=== PATIENT | female | born 1960 | race Caucasian/White ===

== ENCOUNTER → 2019-10-06 08:31 | Outpatient (CLI) | payer BC | END | disposition home or self-care (01) | LOC: D.HCCARDIO 08:31 | PROVIDERS: ATTEND Internal Medicine Cardiovascular Disease | DX: I35.8 Other nonrheumatic aortic valve disorders (principal) ==

== ENCOUNTER 2019-11-03 06:02 | Outpatient (CLI) | payer BC ==
[~2019-11-03] VITALS: Ht 157.5 cm; Wt 56.4 kg
--- NOTE | ~2019-11-03 | EC ---
PATIENT:CARISSA ZAFAR DATE OF SERVICE: 11/03/19 SEX: F MEDICAL RECORD: [id number] DATE OF : 58 LOCATION:D.CAT AGE OF PATIENT: 59 ADMISSION DATE: 11/03/19 REFERRING PHYSICIAN: INTERPRETING PHYSICIAN: KADEN CARDENAS MD ECHOCARDIOGRAM REPORT ECHO CHARGES 4 ECHO COMPLETE Date: 11/03/19 CLINICAL DIAGNOSIS: AORTIC STENOSIS ECHOCARDIOGRAPHIC MEASUREMENTS (adult normal given) AC root (d.<3.7cm) 2.6 cm LV Septum d (<1.2 cm> 1.5 cm Valve Excursion 1.2 cm LV Septum (systole) 1.6 cm Left Atria (s.<4.0cm> 3.4 cm LVPW d(<1.2cm) 1.7 cm RV (d.<2.3cm) 3.8 cm LVPW (sytole) 2.1 cm LV diastole(<5.6CM) 3.2 cm MV E-F(>70mm/sec) cm LV systole 1.5 cm LVOT Diameter 1.7 cm MV exc.(>10mm) 1.2 cm Est.ejection fraction (50-75%) % DOPPLER: LVIT cm/sec A 104.0cm/sec E 120.0 cm/sec LA cm/sec RVSP 33 mmHg LVOT 105 cm/sec AOP1/2T m/s Asc. Ao 214 cm/sec RVOT 79 cm/sec RA cm/sec PA 128 cm/sec AV Gradient Peak 18.28mmHg AV Mean 10.27mmHg AV Area 1.3 cm MV Gradient Peak 7.64 mmHg MV Mean 2.93 mmHg MV Area cm COMMENTS: Refrigerator Repair Technician: Basia GAY Ad Trafficker: 2 Dr. Johnston TAPE# PACS Pericardial Effusion N DATE OF SERVICE: ECHOCARDIOGRAM FINDINGS: 1. Left ventricular chamber size is within normal limits. Left ventricular systolic function is normal at 65%. 2. Left atrium, right atrium and right ventricular chamber sizes are within normal limits. 3. Valvular structures: Aortic valve demonstrates mild calcific aortic ECHOCARDIOGRAM REPORT [id number] CARISSA ZAFAR stenosis, valve area calculates 1.3 cm square and has a gradient of 18 mm across the valve. The remaining valvular structures have normal structure and motion. 4. Doppler interrogation elsewise reveals no significant valvular insufficiency or stenosis. Pulmonary systolic pressure is normal estimated at 33 mmHg. 5. No evidence of pericardial effusion or left ventricular thrombus. TRANSINT:[id number] Voice Confirmation ID: [id number] DOCUMENT ID: [id number] KADEN CARDENAS MD CC: [id number] DICTATION DATE: 11/03/19 1155 LIQUOR BLENDER: 11/03/19 1558 DEP CLI 11/03/19 [facility] [address] [place] [id number]
--- NOTE | ~2019-11-03 | HEMODYNAMI ---
PATIENT:CARISSA ZAFAR MEDICAL RECORD: [id number] : 58 LOCATION:DBelloCAT ADMISSION DATE: 11/03/19 Generatedon:11/03/20198:29 Patient name: CARISSA ZAFAR Patient #: [id number] SSN: [id number] : 1960 Date of study: 11/03/2019 Page: Of Hemodynamic Procedure Report Patient Data Patient Demographics Procedure consent was obtained First Name: CARISSA Gender: Female Last Name: CHARISMA : 1960 Patient #: [id number] Age: 59 year(s) Race: SSN: [id number] Additional ID: [id number] Contact details [address]: [address] [place] [address] State: [place] City: [place] Zip code: [address] Past Medical History History of disease Date Diagnosis Comments Valvular heart disease Allergies: No known allergies Admission Admission Data Admission Date: 11/03/2019 Admission Time: 6:02 Arrival Date: 08/03/2020 Arrival Time: 0:00 Admit Source: Other Insurance Payor: Private health insurance [facility] #: [id number] Height (in.): 61.5 BSA: 1.57 (m2) Height (cm.): 156.21 BMI: 23.79 (kg/m2) Weight (lbs.): 128 Weight (kg.): 58.06 Lab Results Lab Result Date: 11/03/2019 Lab Result Time: 0:00 Biochemistry Name Units Result Min Max BUN mg/dl 19 --(----)*- 7 18 Creatinine mg/dl 0.7 --(*---)-- 0.6 1.3 eGFR ml/min 90 --(*---)-- 90 120 NONAFRICAN CBC Name Units Result Min Max Hematocrit % 41.2 -*(----)-- 42 54 Hemoglobin g/dl 13.4 -*(----)-- 13.5 17.5 Procedure Procedure Types Cath Procedure Diagnostic Procedure [facility] w/Coronaries Aortic Root Angiography Sedation Charges Moderate Sedation up to 15 minutes Procedure Description Procedure Date Procedure Date: 11/03/2019 Procedure Start Time: 8:04 Procedure End Time: 8:26 Procedure Staff Name Function Giorgio Johnston MD Performing Physician Abbey Julio RT Monitor Suellen Richardson RN Nurse Lexi Irvin RT Scrub Mary Banks RT Monitor Procedure Data Cath Procedure Fluoroscopy Diagnostic fluoroscopy Total fluoroscopy Time: 3.8 time: 3.8 min min Contrast Material Contrast Material Type Amount (ml) Isovue 370 90 Entry Location Entry Primary Successful Side Size Upsize Upsize Entry Closure Succes sful Closure Location (Fr) 1 (Fr) 2 (Fr) Remarks Device Remarks Femoral Right 5 Fr Exoseal artery Estimated blood loss: 5 ml Diagnostic catheters Device Type Used For End Catheter Placement MULTIPACK JL 4.0 5Fr Procedure catheter MULTIPACK 3DRC 5Fr Procedure catheter MULTIPACK Pigtail 5 Fr Procedure catheter Procedure Complications No complications Procedure Medications Medication Administration Route Dosage Oxygen etCO2 Nasal cannula 2 l/min Heparin Flush Bag added to field 2 bags (1000units/500ml NS) 0.9% NaCl I.V. 100 ml/hr Versed I.V. 2 mg Fentanyl I.V. 50 mcg Versed I.V. 2 mg Fentanyl I.V. 50 mcg Versed I.V. 1 mg Fentanyl I.V. 50 mcg Hemodynamics Rest BSA: 1.57 (m2) HGB: 13.4 (g/dl) O2 Consumption: Estimated: 141.91 (ml/min) O2 Co nsumption indexed: Estimated:90.39 (ml/min/m) Heart Rate: 58 (bpm) Pressure Samples Time Site Value (mmHg) Purpose Heart Use Rate(bpm) 8:14 LV 118/23,29 Snapshot 62 8:15 AO 107/42(64) Pullback 63 8:15 LV 122/16,23 Pullback 63 Gradients Valve Time Site 1 Site 2 Mean SEP/DFP Peak To Heart Use (mmHg) (sec/min) Peak Rate (mmHg) (bpm) Aortic 8:15 LV AO 11 22 15 63 122/16,23 107/42(64) Calculations Valve P-P Mean Valve Index Valve Source Name Gradient Area Flow (cm2) Aortic 15 11 15 11 Snapshots Pre Cath Intra NCS Post Cath Vital Signs Time Heart Resp SPO2 etCO2 NIBP (mmHg) Rhythm Pain Sedation Rate (ipm) (%) (mmHg) Status Level (bpm) 7:55:42 61 21 97 36.9 152/69(122) NSR 0 (11) 10(A) , No pain 8:00:05 58 18 98 42.9 126/55(97) NSR 0 (11) 10(A) , No pain 8:04:23 58 10 99 24.8 118/49(85) NSR 0 (11) 10(A) , No pain 8:08:36 61 17 98 44.4 124/59(90) NSR 0 (11) 9(A) , No pain 8:12:50 60 10 99 48.2 96/49(73) NSR 0 (11) 9(A) , No pain 8:17:02 61 18 99 47.4 97/37(66) NSR 0 (11) 9(A) , No pain 8:21:14 61 14 99 44.2 95/40(61) NSR 0 (11) 10(A) , No pain 8:25:26 59 8 99 46.7 96/48(71) NSR 0 (11) 10(A) , No pain Medications Time Medication Route Dose Verified Delivered Reason Notes Effec tiveness by by 7:58:39 Oxygen etCO2 2 Giorgio Buffie used for Nasal l/min Preston Richardson RN procedure cannula 7:58:55 Heparin Flush added 2 Giorgio Giorgio used for Bag to bags Preston Johnston MD procedure (1000units/500ml field NS) 7:59:03 0.9% NaCl I.V. 100 Giorgio Buffie Per ml/hr Preston Richardson RN physician 8:01:04 Versed I.V. 2 mg Giorgio Buffie for Preston Richardson RN sedation 8:01:10 Fentanyl I.V. 50 Giorgio Buffie for mcg Preston Richardson RN sedation 8:05:03 Versed I.V. 2 mg Giorgio Buffie for Preston Richardson RN sedation 8:05:07 Fentanyl I.V. 50 Giorgio Buffie for mcg Preston Richardson RN sedation 8:12:15 Versed I.V. 1 mg Giorgio Buffie for Preston Richardson RN sedation 8:12:24 Fentanyl I.V. 50 Giorgio Buffie for [facility] Preston Richardson RN sedation Procedure Log Time Note 7:30:48 Informed consent obtained and on chart 7:33:19 Procedure Status Elective Heart Cath (OP). 7:33:21 Time tracking: Regular hours (M-F 7:00 - 5:00) 7:33:25 Plan of Care:Hemodynamics will remain stable., Cardiac rhythm will remain stable., Comfort level will be maintained., Respiratory function will remain adequate., Patient/ family verbilizes understanding of procedure., Procedure tolerated without complication., Recovers from procedure without complications.. 7:34:52 Patient Weight : 128 lbs 7:35:09 Patient Height : 61.5 inches 7:35:13 Arrival Date: 08/03/2020 12:00:00 AM 7:40:00 Lab Result : eGFR NONAFRICAN 90 ml/min 7:40:00 Lab Result : Hemoglobin 13.4 g/dl 7:40:00 Lab Result : BUN 19 mg/dl 7:40:00 Lab Result : Creatinine 0.7 mg/dl 7:40:00 Lab Result : Hematocrit 41.2 % 7:40:05 Suellen Richardson RN sent for patient. Start room use. 7:40:20 H&P Date Dictated: 10/02/2019 Within 30 days and on chart., H&P Addendum completed by physician on day of procedure. (MUST COMPLETE FOR ALL OUTPATIENTS). 7:40:28 Patient allergic to No known allergies 7:42:37 Stress Test: yes; abnormal ANTERIOR 7:42:40 Risk of Mortality: .2 7:42:42 Risk of blood transfusion: .3 7:42:44 Risk of OMAIRA: .3 7:45:20 ACC Patient presents with Stable Angina CCS Anginal Class 3--Marked limitation of physical activity, angina occurs with ordinary activity.. 7:45:54 Patient received from Pre/Post Procedure Room to CCL 1 Alert and oriented. Tansferred to table in Supine position. 7:45:55 Warm blankets applied, and julisa hugger turned on for patient comfort. 7:45:55 Correct patient and procedure confirmed by team. 7:45:56 ECG and BP/O2 sat monitors applied to patient. 7:52:09 Pre-procedure instructions explained to patient. 7:52:10 Pre-op teaching completed and patient verbalized understanding. 7:52:20 Family in waiting room. 7:52:22 Patient NPO since Midnight. 7:52:25 Is the patient allergic to Iodine/contrast media? No. 7:52:27 Was the patient premedicated? Yes 7:52:30 Is patient on blood thinner?No 7:52:32 Patient diabetic? No. 7:52:35 If diabetic: On Metformin? N/A 7:52:43 Patient not . Patient is over age 55. 7:52:44 ----Pre-sedation anethsthesia assessment.---- 7:52:49 Previous problem with sedation/anesthesia? No ? 7:52:50 Snore? Yes 7:52:52 Sleep apnea? No 7:52:53 Deviated septum? No 7:52:54 Opens mouth fully? Yes 7:52:56 Sticks out tongue? Yes 7:52:58 Airway obstruction? No ? 7:53:01 Dentures? No ? 7:53:23 Patient pain scale 0/10 ?. 7:53:32 IV patent on arrival in left antecubital with 0.9% NaCl at [facility]. 7:53:36 Right groin area was prepped with chlora-prep and draped in sterile fashion 7:53:37 Alarms reviewed by R. N. 7:53:38 Sharps counted by scrub and verified by R.N. 7:54:25 Pre procedure: right dorsailis pedis pulse 1+ Palpable, but thready & weak; easily obliterated 7:54:30 Vital chart was started 7:54:31 Full Disclosure recording started 7:54:40 Use device set Femoral Dx 7:54:41 ACIST Syringe (52588) opened to sterile field. 7:54:42 Bag Decanter (2002S) opened to sterile field. 7:54:43 Medline Cath Pack ([id number]) opened to sterile field. 7:54:45 ACIST Hand Control (67922) opened to sterile field. 7:54:46 ACIST Manifold (73285) opened to sterile field. 7:54:47 DIAGNOSTIC Multipack 5Fr catheter set ([id number]) opened to sterile field. 7:54:50 SHEATH 5FR [place] (OTF218) opened to sterile field. 7:54:51 EMERALD Guide Wire (731-329) opened to sterile field. 7:54:56 Baseline sample Acquired. 7:55:02 Rhythm: sinus rhythm 7:55:47 Insurance Payor : Private health insurance 7:56:00 Admit Source: Other 7:58:39 Oxygen 2 l/min etCO2 Nasal cannula was administered by Suellen Richardson RN; used for procedure; Verbal order read back and verified. 7:58:55 Heparin Flush Bag (1000units/500ml NS) 2 bags added to field was administered by Giorgio Johnston MD; used for procedure; Verbal order read back and verified. 7:59:03 0.9% NaCl 100 ml/hr I.V. was administered by Suellen Richardson RN; Per physician; Verbal order read back and verified. 7:59:53 --------ALL STOP TIME OUT------ 7:59:53 Final Timeout: patient, procedure, and site verified with staff and physician. All members of the team are in agreement. 7:59:56 Right groin site verified by team. 8:00:00 Fire Safety Assessment: A--An alcohol-based skin anteseptic being used preoperatively., C--Open oxygen or nitrous oxide is being used., D--An ESU, laser, or fiber-optic light is being used. 8:00:08 Physical assessment completed. ASA score P 2 - A patient with mild systemic disease as per Giorgio Johnston MD. 8:00:16 1) 90+ Normal kidney functon but urine findings or structural abnormalities or genetic trait point to kidney disease. 8:00:21 Maximum allowable contrast dose (3.7 X eGFR X 0.75)250 ml. 8:00:25 Sedation plan: IV Moderate Sedation Medication:Versed, Fentanyl 8:01:04 Versed 2 mg I.V. was administered by Suellen Richardson RN; for sedation; Verbal order read back and verified. 8:01:10 Fentanyl 50 mcg I.V. was administered by Suellen Richardson RN; for sedation; Verbal order read back and verified. 8:03:27 Zero performed for pressure channel P1 8:03:54 Procedure started. 8:04:33 Local anesthetic to right femoral artery with Lidocaine 2% by Goirgio Johnston MD.INITIAL ACCESS ONLY 8:05:03 Versed 2 mg I.V. was administered by Suellen Richardson RN; for sedation; Verbal order read back and verified. 8:05:07 Fentanyl 50 mcg I.V. was administered by Suellen Richardson RN; for sedation; Verbal order read back and verified. 8:06:19 A 5 Fr sheath was inserted into the Right Femoral artery 8:06:31 A MULTIPACK JL 4.0 5Fr catheter was advanced over the wire and used for Procedure. 8:07:54 LCA angiography performed. 8:09:04 Catheter exchanged over wire. 8::29 A MULTIPACK 3DRC 5Fr catheter was advanced over the wire and used for Procedure. 8:10:50 RCA angiography performed. 8:11:49 ACCDominant side:Co-Dominant 8:11:57 Catheter exchanged over wire. 8:12:15 Versed 1 mg I.V. was administered by Suellen Richardson RN; for sedation; Verbal order read back and verified. 8:12:24 Fentanyl 50 mcg I.V. was administered by Sulelen Richardson RN; for sedation; Verbal order read back and verified. 8:12:50 A MULTIPACK Pigtail 5 Fr catheter was advanced over the wire and used for Procedure. 8:14:21 Injector settings: Ml/sec: 5, Volume: 15, 8:14:31 LV gram done using MOCK 8:14:32 LV hemodynamics recorded. 8:14:48 EF : 60 % 8:16:06 Aortic Root visualized 8:22:20 Catheter removed. 8:22:24 EXOSEAL 5Fr (EX500) opened to sterile field. 8:22:35 Sheath removed intact; hemostasis achieved with Exoseal to the Right Femoral artery. 8:23:27 Procedure ended.(Physican Out) 8:23:31 Fluoroscopy time 03.80 minutes. 8:23:42 Dose Area Product 34450 mGy/cm. 8:23:46 Contrast amount:Isovue 370 90ml. 8:23:49 Maximum allowable dose exceeded? No. 8:23:50 Sharps counted by scrub and verified by R.N. 8:23:54 Post-op/insertion site Right Femoral artery dressed using a 4 x 4 and Tegaderm. 8:24:00 Post right femoral artery:stable, soft, clean and dry 8:24:02 Post Procedure Pulses reassessed and unchanged 8:24:06 Post procedure: right dorsailis pedis pulse 1+ Palpable, but thready & weak; easily obliterated. 8:24:09 Post-procedure physical assessment completed. ASA score P 2 - A patient with mild systemic disease as per Giorgio Johnston MD. 8:24:13 Post procedure rhythm: unchanged. 8:24:16 Estimated blood loss: 5 ml 8:24:19 Patient needs reinforcement of post procedure teaching. 8:24:20 Post procedure instruction explained to patient.Patient verbalizes understanding. 8:25:40 Procedure type changed to Cath procedure, Diagnostic procedure, LHC, C w/Coronaries, Aortic Root Angiography, Sedation Charges, Moderate Sedation up to 15 minutes 8:26:20 Procedure and supply charges have been captured, reviewed, submitted and are correct. 8:26:25 Procedure Complication : No complications 8:26:32 [facility] Findings: MVD- MD will discuss options w/ pt 8:26:35 Operative report dictated upon procedure completion. 8:26:35 See physician's report for complete and final results. 8:26:37 Report given to Pre/Post Procedure Room. 8:26:42 Patient transfered to Pre/Post Procedure Room with Stretcher. 8:26:50 Vital chart was stopped 8:26:53 Procedure ended. 8:26:53 Full Disclosure recording stopped 8:28:36 End room use (Document Last) 8:28:49 End room use (Document Last) 8:29:08 End room use (Document Last) Device Usage Item Name Manufacture Quantity Catalog Hospital Part Current Minimal L ot# / Number Charge Number Stock Stock Serial# Code ACIST Acist 1 03124 786751 [id number] [id number] 20 Syringe Medical (35089) Systems Inc Bag Microtek 1 752582 07395 800294 5 Decanter Medical Inc. () Medline Medline 1 [id number] 963075 03988 216772 5 Cath Pack ([id number]) ACIST Hand Acist 1 84949 278865 021602 428448 5 Control Medical (85233) Systems Inc ACIST Acist 1 47582 201352 000512 361227 5 Manifold Medical (12002) Systems Inc DIAGNOSTIC Cardinal 1 QR2243 188761 78310 915812 30 [email or web address] Oneexchangestreet 5Fr catheter set (RA1395) SHEATH 5FR Terumo 1 QGB338 773793 799588 129598 5 [place] (UVP485) [facility] Cardinal 1 649-175 090527 260849 096054 5 Guide Wire Health (146-537) MULTIPACK Cardinal 1 615351 5 JL 4.0 5Fr Health catheter MULTIPACK Cardinal 1 459232 5 3DRC 5Fr Health catheter MULTIPACK Cardinal 1 [id number] 5 Pigtail 5 Health Fr catheter EXOSEAL 5Fr Cardinal 1 EX500 188577 988581 634558 10 (EX500) Health Signature Audit [place] Stage Time Signature Unsigned Intra-Procedure 11/03/2019 Mary Banks 8:28:49 AM RT(R) Intra-Procedure 11/03/2019 Suellen Richardson RN 8:29:08 AM Intra-Procedure 11/03/2019 Giorgio Johnston MD 8:29:27 AM [facility] [address] [place] [address]
[2019-11-03 06:41] VITALS: BP 141/76; Ht 157.5 cm; Wt 56.4 kg
[2019-11-03] MEDS ORDERED: CYANOCOBAL1000 MCG/4 SC (07:01)
[2019-11-03] MEDS ORDERED: NORVASC5 MG PO (07:01)
[2019-11-03] MEDS ORDERED: VALTREX500 MG PO (07:02)
[2019-11-03] MEDS ORDERED: MOBIC7.5 MG PO (07:02)
[2019-11-03] MEDS ORDERED: LISINOPRIL-HCT1 EAC8 PO (07:02)
[2019-11-03] MEDS ORDERED: LEVOTHYROXINE150 MCG PO (07:03)
[2019-11-03 07:13] LABS: BASOPHILS 0.3 % (0-2); EOSINOPHILS 4.3 % (0-7); HEMATOCRIT 41.2 % (36.0-48.0); HEMOGLOBIN 13.4 g/dL (12-16); IMMATURE GRANULOCYTES 0.3 % (0-5); LYMPHOCYTES 13.7 % (15-50); MCH 31.5 pg (26.0-34.0); MCHC 32.5 g/dL (31.0-37.0); MCV 96.9 fL (80.0-100.0); MEAN PLATELET VOLUME 13.6 fL (7.4-10.4); MONOCYTES 10.4 % (2-11); PLATELET COUNT 145 10x3/uL (130-400); RBC 4.25 10x6/uL (4.00-5.40); RDW 12.6 % (11.5-14.5); WBC 6.6 10x3/uL (4.8-10.8)
[2019-11-03 07:34] LABS: ALT (SGPT) 29 U/L (10-68); CALC OSMOLALITY 280 mosm/kg (275-300); CALCIUM 8.9 mg/dL (8.5-10.1); CARBON DIOXIDE 28.6 mmol/L (21.0-32.0); CHLORIDE - SERUM 104 mmol/L (98-107); CHOL - HDL RATIO 5.7 ratio (2.3-4.1); CHOLESTEROL, TOTAL 301 mg/dL (0-200); CREATININE - SERUM 0.7 mg/dL (0.6-1.3); GLUCOSE 96 mg/dL (74-106); HDL CHOLESTEROL 53 mg/dL (32-96); LDL CHOLESTEROL 220 mg/dL (0-100); LDL-HDL RATIO 4.2 ratio (1.5-3.5); POTASSIUM - SERUM 3.8 mmol/L (3.5-5.1); SODIUM 140 mmol/L (136-145); TRIGLYCERIDE 141 mg/dL (30-200); UREA NITROGEN 19 mg/dL (7-18); eGFR NON AFRICAN AMERICAN 90 mL/min (90-120)
--- NOTE | 2019-11-03 08:42 | NUR ---
PT RECEIVED VIA STRETCHER FROM TELEPHONE CLEANER FOR RECOVERY. PT AWAKE BUT DROWSY, SHE DENIES PAIN OR DISCOMFORT. IV PATENT INFUSING VIA L ARM PER ORDERS. PT PLACED ON CARDIAC MONITORS AND O2 VIA NC AT 2L. HR NSR RATE 60, BP 144/55, SAT 98. R GROIN W 5FR EXOCELE, DRESSING CDI NO BLEEDING OR S/S HEMATOMA NOTED. LEG PINK AND WARM, PEDAL PULSES PALPABLE. PT INSTRUCTED TO KEEP HEAD ON PILLOW AND LEG STRAIGHT, SHE VERBALIZED UNDERSTANDING. CALL LIGHT IN REACH.
--- NOTE | 2019-11-03 09:00 | NUR ---
PT RESTING COMFORTABLY, DENIES NEEDS OR DISCOMFORT. VSS. R GROIN SOFT, DRESSING REMAINS CDI NO BLEEDING OR S/S HEMATOMA NOTED. PEDAL PULSES PALPABLE. SIPS OF SPRITE GIVEN. CALL LIGHT IN REACH.
--- NOTE | 2019-11-03 09:15 | NUR ---
RN OCCUPATIONAL AT BS PERFORMING ORDERED ECHO.
--- NOTE | 2019-11-03 09:45 | NUR ---
PORTABLE CHEST XR COMPLETED. R GROIN SOFT, NO S/S HEMATOMA. HOB ELEVATED, SANDWICH TRAY AND DRINK SERVED. CALL LIGHT IN REACH, PT DENIES OTHER NEEDS
--- NOTE | 2019-11-03 10:20 | NUR ---
DISCHARGE INSTRUCTIONS REVIEWED W PT, SHE VERBALIZED UNDERSTANDING. IV REMOVED W CATH INTACT. MONITORS REMOVED. R GROIN SOFT, NO S/S HEMATOMA NOTED. PT UP TO DRESS FOR DISCHARGE.
--- NOTE | 2019-11-03 10:26 | NUR ---
PT AMBULATED TO BR, VOIDING W/O DIFFICULITY
--- NOTE | 2019-11-03 10:46 | NUR ---
PT DISCHARGED VIA WC TO PRIVATE WAITING IN PRIVATE VEHICLE. PT HAD ALL BELONGINGS AND DISCHARGE PAPERWORK
== END 2019-11-03 10:45 | disposition home or self-care (01) ==
LOC: D.CATH 06:02
PROVIDERS: ATTEND Internal Medicine Cardiovascular Disease
DX: I20.9 Angina pectoris, unspecified (principal); R94.39 Abnormal result of other cardiovascular function study; R01.1 Cardiac murmur, unspecified; I35.8 Other nonrheumatic aortic valve disorders; E78.5 Hyperlipidemia, unspecified

== ENCOUNTER 2019-11-14 10:41 | Outpatient (CLI) | payer BC ==
[~2019-11-14] VITALS: Ht 157.5 cm; Wt 57.3 kg
--- NOTE | ~2019-11-14 | HEMODYNAMI ---
PATIENT:CARISSA ZAFAR MEDICAL RECORD: [id number] : 58 LOCATION:[facility] ADMISSION DATE: 11/14/19 Generatedon:11/14/201913:24 Patient name: CARISSA ZAFAR Patient #: [id number] SSN: [id number] : 1960 Date of study: 11/14/2019 Page: Of Hemodynamic Procedure Report Patient Data Patient Demographics Procedure consent was obtained First Name: CARISSA Gender: Female Last Name: CHARISMA : 1960 Patient #: [id number] Age: 59 year(s) Race: SSN: [id number] Additional ID: [id number] Contact details Address: [address] [place] [address] State: [place] City: [place] Zip code: [address] Past Medical History History of disease Date Diagnosis Comments Valvular heart disease Allergies: No known allergies Admission Admission Data Admission Date: 11/14/2019 Admission Time: 10:41 Arrival Date: 11/14/2019 Arrival Time: 0:00 Height (in.): 61.81 BSA: 1.57 (m2) Height (cm.): 157 BMI: 23.12 (kg/m2) Weight (lbs.): 125.66 Weight (kg.): 57 Current Diagnosis Diagnosis Description Stable angina Lab Results Lab Result Date: 11/14/2019 Lab Result Time: 0:00 Biochemistry Name Units Result Min Max BUN mg/dl 19 --(----)*- 7 18 Creatinine mg/dl 0.8 --(-*--)-- 0.6 1.3 eGFR ml/min 76.29257 *-(----)-- 90 120 NONAFRICAN CBC Name Units Result Min Max Hematocrit % 43.8 --(*---)-- 42 54 Hemoglobin g/dl 14.3 --(*---)-- 13.5 17.5 Procedure Procedure Types Cath Procedure Diagnostic Procedure Sedation Charges Moderate Sedation up to 15 minutes PCI Procedure Coronary Stent Coronary Stent Initial Hemochron ACT Test Procedure Description Procedure Date Procedure Date: 11/14/2019 Procedure Start Time: 13:00 Procedure End Time: 13:22 Procedure Staff Name Function Giorgio Johnston MD Performing Physician Abbey Julio RT Monitor Radha Bonilla RT Scrub Sandra Garrett RN Nurse Procedure Data Cath Procedure Fluoroscopy Diagnostic fluoroscopy Total fluoroscopy Time: 4.6 time: 4.6 min min Diagnostic fluoroscopy Total fluoroscopy dose: 108 dose: 108 mGy mGy Contrast Material Contrast Material Type Amount (ml) Isovue 300 46 Entry Location Entry Primary Successful Side Size Upsize Upsize Entry Closure Succes sful Closure Location (Fr) 1 (Fr) 2 (Fr) Remarks Device Remarks Femoral Right 6 Fr Exoseal artery Short Estimated blood loss: 10 ml Procedure Complications No complications Procedure Medications Medication Administration Route Dosage 0.9% NaCl I.V. 100 ml/hr Oxygen etCO2 Nasal cannula 2 l/min Lidocaine 2% added to field 20 Heparin Flush Bag added to field 2 bags (1000units/500ml NS) Versed I.V. 2 mg Fentanyl I.V. 50 mcg Versed I.V. 2 mg Fentanyl I.V. 50 mcg Heparin Bolus I.V. 6000 units Plavix P.O. 600 mg Versed I.V. 2 mg Hemodynamics Rest BSA: 1.57 (m2) HGB: 14.3 (g/dl) O2 Consumption: Estimated: 143.65 (ml/min) O2 Co nsumption indexed: Estimated:91.5 (ml/min/m) Heart Rate: 61 (bpm) Snapshots Pre Cath Intra NCS Post Cath Vital Signs Time Heart Resp SPO2 etCO2 NIBP (mmHg) Rhythm Pain Sedation Rate (ipm) (%) (mmHg) Status Level (bpm) 12:45:18 65 16 96 38.2 167/68(112) NSR 0 (11) 10(A) , No pain 12:49:44 68 15 97 39.7 134/57(95) NSR 0 (11) 10(A) , No pain 12:54:00 67 17 98 38.1 124/54(85) NSR 0 (11) 10(A) , No pain 12:58:15 66 16 97 40.4 114/52(76) NSR 0 (11) 10(A) , No pain 13:02:24 65 16 97 46.5 118/51(83) NSR 0 (11) 10(A) , No pain 13:06:36 64 10 98 46.5 112/48(81) NSR 0 (11) 10(A) , No pain 13:10:46 66 12 98 41.9 111/46(78) NSR 0 (11) 10(A) , No pain 13:14:56 71 11 98 32.8 112/49(80) NSR 0 (11) 10(A) , No pain 13:19:04 73 19 98 41.2 122/53(79) NSR 0 (11) 10(A) , No pain Medications Time Medication Route Dose Verified Delivered Reason Notes Effectiveness by by 12:44:52 0.9% NaCl I.V. 100 Giorgio Sandra used for ml/hr Preston Garrett clinical care coordinator 12:45:01 Oxygen etCO2 2 Giorgio Sandra used for Nasal l/min Preston Garrett procedure cannula RN 12:45:08 Lidocaine 2% added 20ml Giorgio Giorgio for local to vial Preston Johnston MD anesthetic field 12:45:13 Heparin Flush added 2 Giorgio Giorgio used for Bag to bags Preston Johnston MD procedure (1000units/500ml field NS) 12:56:19 Versed I.V. 2 mg Giorgio Sandra for sedation Preston Garrett RN 12:56:37 Fentanyl I.V. 50 Giorgio Sandra for sedation mcg Preston Garrett RN 13:01:50 Versed I.V. 2 mg Giorgio Sandra for sedation Preston Garrett RN 13:01:54 Fentanyl I.V. 50 Giorgio Sandra for sedation mcg Preston Garrett RN 13:06:24 Heparin Bolus I.V. 6000 Giorgio Sandra for verif ied units Preston Garrett anticoagulation with Dr. ANDREA Johnston 13:06:42 Plavix P.O. 600 Giorgio Sandra for mg Preston Garrett antiplatelet RN therapy 13:06:59 Versed I.V. 2 mg Giorgio Sandra for sedation Preston Garrett cot assembler Log Time Note 12:25:29 Informed consent obtained and on chart 12:26:16 Procedure Status PCI. 12:26:17 Time tracking: Regular hours (M-F 7:00 - 5:00) 12:26:20 Plan of Care:Hemodynamics will remain stable., Cardiac rhythm will remain stable., Comfort level will be maintained., Respiratory function will remain adequate., Patient/ family verbilizes understanding of procedure., Procedure tolerated without complication., Recovers from procedure without complications.. 12:30:14 Sandra Garrett RN sent for patient. Start room use. 12:30:22 H&P Date Dictated: 11/09/2019 Within 30 days and on chart., H&P Addendum completed by physician on day of procedure. (MUST COMPLETE FOR ALL OUTPATIENTS). 12:30:46 Patient allergic to No known allergies 12:32:07 Lab Result : BUN 19 mg/dl 12:32:07 Lab Result : Creatinine 0.8 mg/dl 12:32:07 Lab Result : eGFR NONAFRICAN 76.51522 ml/min 12:32:07 Lab Result : Hematocrit 43.8 % 12:32:07 Lab Result : Hemoglobin 14.3 g/dl 12:32:19 Stress Test: no; N/A STAGED PCI 12:37:16 Patient received from Pre/Post Procedure Room to CCL 3 Alert and oriented. Tansferred to table in Supine position. 12:37:17 Warm blankets applied, and julisa hugger turned on for patient comfort. 12:37:17 Correct patient and procedure confirmed by team. 12:37:18 ECG and BP/O2 sat monitors applied to patient. 12:44:05 Vital chart was started 12:44:08 Baseline sample Acquired. 12:44:18 Rhythm: sinus rhythm 12:44:19 Full Disclosure recording started 12:44:20 Pre-procedure instructions explained to patient. 12:44:20 Pre-op teaching completed and patient verbalized understanding. 12:44:22 Family in patients room. 12:44:24 Patient NPO since Midnight. 12:44:26 Is the patient allergic to Iodine/contrast media? No. 12:44:28 Is patient on blood thinner?No 12:44:30 Patient diabetic? No. 12:44:34 Patient not . Patient is over age 55. 12:44:37 Previous problem with sedation/anesthesia? No ? 12:44:37 Snore? Yes 12:44:38 Sleep apnea? No 12:44:39 Deviated septum? No 12:44:41 Opens mouth fully? Yes 12:44:42 Sticks out tongue? Yes 12:44:43 Airway obstruction? No ? 12:44:48 Dentures? No BRIDGES 12:44:51 Pre procedure: right dorsailis pedis pulse 1+ Palpable, but thready & weak; easily obliterated 12:44:52 0.9% NaCl 100 ml/hr I.V. was administered by Sandra Garrett RN; used for procedure; Verbal order read back and verified. 12:44:55 Patient pain scale 0/10 ?. 12:45:01 Oxygen 2 l/min etCO2 Nasal cannula was administered by Sandra Garrett RN; used for procedure; Verbal order read back and verified. 12:45:01 IV patent on arrival in left hand with 0.9% NaCl at [facility]. 12:45:04 Lab results completed and on chart. 12:45:06 Alarms reviewed by R. N. 12:45:07 Sharps counted by scrub and verified by R.N. 12:45:08 Lidocaine 2% 20ml vial added to field was administered by Giorgio Johnston MD; for local anesthetic; Verbal order read back and verified. 12:45:10 Right groin area was prepped with chlora-prep and draped in sterile fashion 12:45:13 Heparin Flush Bag (1000units/500ml NS) 2 bags added to field was administered by Giorgio Johnston MD; used for procedure; Verbal order read back and verified. 12:48:34 Risk of Mortality: .1 12:48:37 Risk of blood transfusion: .4 12:48:40 Risk of OMAIRA: 1.7 12:48:57 Patient Weight : 125.66 lbs 12:48:59 Patient Height : 61.81 inches 12:49:03 Arrival Date: 11/14/2019 12:00:00 AM 12:49:12 Current Diagnosis : Stable angina 12:55:15 --------ALL STOP TIME OUT------ 12:55:16 Final Timeout: patient, procedure, and site verified with staff and physician. All members of the team are in agreement. 12:55:17 Right groin site verified by team. 12:55:23 Fire Safety Assessment: A--An alcohol-based skin anteseptic being used preoperatively., C--Open oxygen or nitrous oxide is being used., D--An ESU, laser, or fiber-optic light is being used. 12:55:26 Physical assessment completed. ASA score P 2 - A patient with mild systemic disease as per Giorgio Johnston MD. 12:55:46 2) 60-89 Mildly reduced kidney function, and other findings (as for stage 1) point to kidney disease. 12:55:50 Maximum allowable contrast dose (3.7 X eGFR X 0.75)214. ml. 12:55:53 Sedation plan: IV Moderate Sedation Medication:Versed, Fentanyl 12:56:19 Versed 2 mg I.V. was administered by Sandra Garrett RN; for sedation; Verbal order read back and verified. 12:56:37 Fentanyl 50 mcg I.V. was administered by Sandra Garrett RN; for sedation; Verbal order read back and verified. 12:57:22 Use device set CATH PACK 12:57:23 ACIST Syringe (01744) opened to sterile field. 12:57:24 ACIST Hand Control (98288) opened to sterile field. 12:57:24 ACIST Manifold (16452) opened to sterile field. 12:57:24 Medline Cath Pack ([id number]) opened to sterile field. 12:57:25 Bag Decanter (2002S) opened to sterile field. 12:57:25 EMERALD Guide Wire (502-871) opened to sterile field. 12:57:54 SHEATH 6FR Ragland (KQW820) opened to sterile field. 12:57:55 INFLATOR Merit BasixCompak (OW6388) opened to sterile field. 12:57:55 TUBING High Pressure Extension Tubing ([place]reston) ([id number]) opened to sterile field. 12:57:56 Asahi Minamo 300cm wire opened to sterile field. 12:58:07 GUIDE 6FR JR 4.0 SH catheter ([id number]) opened to sterile field. 13:00:13 Zero performed for pressure channel P1 13:00:26 Procedure started. 13:00:48 Local anesthetic to right femoral artery with Lidocaine 2% by Giorgio Johnston MD.INITIAL ACCESS ONLY 13:01:50 Versed 2 mg I.V. was administered by Sandra Gerry RN; for sedation; Verbal order read back and verified. 13:01:54 Fentanyl 50 mcg I.V. was administered by Sandra Garrett RN; for sedation; Verbal order read back and verified. 13:03:29 A 6 Fr Short sheath was inserted into the Right Femoral artery 13:03:49 6 Fr JR 4 SH guide catheter was inserted over the wire 13:06:24 Heparin Bolus 6000 units I.V. was administered by Sandra Garrett RN; for anticoagulation; verified with Dr. Johnston Verbal order read back and verified. 13:06:42 Plavix 600 mg P.O. was administered by Sandra Garrett RN; for antiplatelet therapy; Verbal order read back and verified. 13:06:59 Versed 2 mg I.V. was administered by Sandra Garrett RN; for sedation; Verbal order read back and verified. 13:07:02 MINAMO 300 wire advanced. 13:07:03 Wire advanced across lesion. 13:09:36 Inflate balloon Inflation number: 1 A EMERGE OTW 2.5 x 15 balloon ([id number]) was prepped and advanced across the Mid RCA , then inflated to 12 DENNISE for 0:00 (min:sec) . 13:10:52 Balloon removed over the wire. 13:15:17 Place stent Inflation Number: 2 A MIKA OTW 3.0 x 34 stent ([id number]) was prepped and advanced across the Mid RCA . The stent was deployed at 14 DENNISE for 0:00 (min:sec) . 13:15:58 Stent catheter was removed intact over wire. 13:15:59 Wire removed. 13:15:59 Guide catheter removed. 13:17:04 EXOSEAL 6Fr (EX600) opened to sterile field. 13:17:58 Sheath removed intact; hemostasis achieved with Exoseal to the Right Femoral artery. 13:18:04 Procedure ended.(Physican Out) 13:18:24 Fluoroscopy time 04.60 minutes. 13:18:28 Fluoroscopy dose: 108 mGy 13:18:28 Flurop Dose total: 108 13:18:37 Dose Area Product 759.97 mGy/cm. 13:19:08 Contrast amount:Isovue 300 46ml. 13:19:11 Maximum allowable dose exceeded? No. 13:20:37 Sharps counted by scrub and verified by R.N. 13:20:40 Post-op/insertion site Right Femoral artery dressed using a 4 x 4 and Tegaderm. 13:20:43 Post-procedure physical assessment completed. ASA score P 2 - A patient with mild systemic disease as per Giorgio Johnston MD. 13:20:46 Post procedure rhythm: sinus rhythm 13:20:50 Estimated blood loss: 10 ml 13:20:52 Post procedure instruction explained to patient.Patient verbalizes understanding. 13:20:52 Patient needs reinforcement of post procedure teaching. 13:21:15 Procedure type changed to Cath procedure, Diagnostic procedure, Sedation Charges, Moderate Sedation up to 15 minutes, PCI procedure, Coronary Stent, Coronary Stent Initial, Hemochron ACT Test 13:21:27 ACT drawn and resulted at >400-out of range seconds. (normal therapeutic range 180-240 seconds). 13:21:46 Procedure and supply charges have been captured, reviewed, submitted and are correct. 13:21:50 Procedure Complication : No complications 13:21:53 Vital chart was stopped 13:21:54 [facility] Findings: MVD- PCI performed (see procedure note) 13:21:56 Operative report dictated upon procedure completion. 13:21:56 See physician's report for complete and final results. 13:21:59 Report given to Pre/Post Procedure Room. 13:22:02 Patient transfered to Pre/Post Procedure Room with Bed. 13:22:03 Procedure ended. 13:22:03 Full Disclosure recording stopped 13:22:10 ACC-PCI Only Patient was given prescriptions, or instructed by Giorgio Johnston MD to start/continue the following medications upon discharge: Plavix 13:22:12 End room use (Document Last) 13:23:50 End room use (Document Last) 13:24:09 End room use (Document Last) Intervention Summary Intervention Notes Time ActionType Lesion and Equipment Action# Pressure Duration Attributes Used 13:09:36 Inflate Mid RCA EMERGE OTW 1 12 00:00 balloon 2.5 x 15 balloon ([id number]) 13:15:17 Place stent Mid RCA MIKA OTW 3.0 2 14 00:00 x 34 stent ([id number]) Device Usage Item Name Manufacture Quantity Catalog Number Hospital Part Current M inimal Lot# / Charge Number Stock Stock Serial# Code ACIST Syringe Acist 1 72233 469860 592331 995170 2 0 (61484) Medical Systems Inc ACIST Hand Acist 1 10962 437535 664262 018476 5 Control Medical (43865) Systems Inc ACIST Acist 1 62660 766783 342177 542594 5 Manifold Medical (60220) Systems Inc Medline Cath Medline 1 [id number] 270515 34411 506017 5 Pack ([id number]) Bag Decanter Microtek 1 2001S 858967 62770 317991 5 (2001S) Medical Inc. EMERALD Guide Cardinal 1 502-455 773625 869812 415447 5 Wire Health (502-455) SHEATH 6FR Terumo 1 CTQ870 232642 863486 352167 4 0 Ragland (OBN309) INFLATOR Merit 1 JL8741 660573 381966 688151 1 5 Merit Medical BasixCompak (IB6216) TUBING High Merit 1 [id number] 569238 12724 059508 1 0 Pressure Medical Extension Tubing (Johnston) (NY4970B) [facility] Intecc 1 [id number] 118520 2328826 515898 0 300cm wire GUIDE 6FR JR Medtronic 1 [id number] 466895 35451 663990 1 4.0 SH catheter ([id number]) EMERGE OTW Newell 1 [id number] 270945 406816 139712 5 [id number] 2.5 x 15 Scientific balloon ([id number]) MIKA OTW 3.0 Medtronic 1 [id number] 869028 6639385 463060 5 [id number] x 34 stent ([id number]) EXOSEAL 6Fr Cardinal 1 EX600 505365 356079 277033 1 0 (EX600) Health Signature Audit [place] Stage Time Signature Unsigned Intra-Procedure 11/14/2019 Abbey Julio 1:23:50 PM RT(R) Intra-Procedure 11/14/2019 Sandra Garrett 1:24:09 PM RN Intra-Procedure 11/14/2019 Giorgio Johnston MD 1:24:32 PM [id number] [place] [address]
[~2019-11-14 10:41] MED LIST: CYANOCOBAL1000 MCG/4 SC; LEVOTHYROXINE150 MCG PO; LISINOPRIL-HCT1 EAC8 PO; MOBIC7.5 MG PO; NORVASC5 MG PO; VALTREX500 MG PO
[2019-11-14 11:09] VITALS: BP 149/50; Ht 157.5 cm; Wt 57.3 kg
[2019-11-14 11:19] LABS: BASOPHILS 0.3 % (0-2); HEMATOCRIT 43.8 % (36.0-48.0); HEMOGLOBIN 14.3 g/dL (12-16); IMMATURE GRANULOCYTES 0.3 % (0-5); LYMPHOCYTES 17.5 % (15-50); MCH 31.4 pg (26.0-34.0); MCHC 32.6 g/dL (31.0-37.0); MCV 96.3 fL (80.0-100.0); MEAN PLATELET VOLUME 13.4 fL (7.4-10.4); MONOCYTES 10.9 % (2-11); PLATELET COUNT 166 10x3/uL (130-400); RBC 4.55 10x6/uL (4.00-5.40); RDW 12.6 % (11.5-14.5); WBC 7.1 10x3/uL (4.8-10.8)
[2019-11-14 11:31] LABS: CALC OSMOLALITY 280 mosm/kg (275-300); CALCIUM 8.8 mg/dL (8.5-10.1); CARBON DIOXIDE 32.6 mmol/L (21.0-32.0); CHLORIDE - SERUM 101 mmol/L (98-107); CREATININE - SERUM 0.8 mg/dL (0.6-1.3); GLUCOSE 97 mg/dL (74-106); POTASSIUM - SERUM 3.8 mmol/L (3.5-5.1); SODIUM 140 mmol/L (136-145); UREA NITROGEN 19 mg/dL (7-18); eGFR NON AFRICAN AMERICAN 77 mL/min (90-120)
--- NOTE | 2019-11-14 13:37 | NUR ---
PT ARRIVED BY STRETCHER. PLACED ON MONITOR. ASSESSMENT COMPLETED. VSS. CALL LIGHT WITHIN REACH.
[2019-11-14] MEDS ORDERED: BAYER CHEWABLE81 MG PO (13:47)
[2019-11-14] MEDS ORDERED: PLAVIX75 MG PO (13:47)
--- NOTE | 2019-11-14 13:55 | NUR ---
RIGHT GROIN DRESSING C/D/I. NO S/S OF HEMATOMA NOTED. CALL LIGHT WITHIN REACH. VSS. NO NEEDS AT THIS TIME. RESTING COMFORTABLY. RIGHT PEDAL PULSE PALPABLE.
--- NOTE | 2019-11-14 14:25 | NUR ---
RIGHT GROIN DRESSING C/D/I. NO S/S OF HEMATOMA NOTED. VSS. CALL LIGHT WITHIN REACH. NO NEEDS AT THIS TIME.
--- NOTE | 2019-11-14 15:00 | NUR ---
RIGHT GROIN DRESSING C/D/I. NO S/S OF HEMATOMA NOTED. CALL LIGHT WITHIN REACH. VSS. PT STILL IN SUPINE POSITION. NO NEEDS AT THIS TIME. WILL CONTINUE TO MONITOR.
--- NOTE | 2019-11-14 15:30 | NUR ---
RIGHT GROIN DRESSING C/D/I. NO S/S OF HEMATOMA NOTED. CALL LIGHT WITHIN REACH. VSS.
--- NOTE | 2019-11-14 16:15 | NUR ---
RIGHT GROIN DRESSING C/D/I. NO S/S OF HEMATOMA NOTED. CALL LIGHT WITHIN REACH. HEAD OF BED INC TO 30 DEGREES. TOLERATED WELL. SET UP WITH SANDWICH TRAY AND DRINK. DENIES NAUSEA/PAIN AT THIS TIME.
--- NOTE | 2019-11-14 17:00 | NUR ---
PIV D/C'D WITH CATH TIP INTACT. TOLERATED WELL. PT AMBULATED TO RESTROOM. VOIDED WITHOUT DIFFICULTY. STEADY GAIT NOTED. RIGHT GROIN DRESSING C/D/I. NO S/S OF HEMATOMA NOTED. DISCUSSED DISCHARGE INSTRUCTIONS WITH PT. SHE VOICED UNDERSTANDING. CALLED IN PLAVIX PRESCRIPTION TO [facility] PER PT REQUEST.
--- NOTE | 2019-11-14 17:05 | NUR ---
PT TAKEN OUT TO VEHICLE BY WHEELCHAIR. NO S/S OF DISTRESS NOTED. ALL BELONGINGS AND PAPERWORK IN HAND.
== END 2019-11-14 17:05 | disposition home or self-care (01) ==
LOC: D.CATH 10:41
PROVIDERS: ATTEND Internal Medicine Cardiovascular Disease
DX: I25.110 Atherosclerotic heart disease of native coronary artery with unstable angina pectoris (principal); I10 Essential (primary) hypertension; E78.5 Hyperlipidemia, unspecified; E07.9 Disorder of thyroid, unspecified; I35.0 Nonrheumatic aortic (valve) stenosis

== ENCOUNTER → 2020-06-13 18:57 | Outpatient (CLI) | payer BC ==
[2019-11-14 11:09] VITALS: BMI 23.1
[~2020-06-13 18:57] MED LIST changes: +BAYER CHEWABLE81 MG PO; +PLAVIX75 MG PO
[2020-06-13 20:42] LABS: CHOL - HDL RATIO 6.3 ratio (2.3-4.1); LDL-HDL RATIO 4.8 ratio (1.5-3.5)
== END | disposition home or self-care (01) ==
LOC: D.LABREF 18:57
PROVIDERS: ATTEND Nurse Practitioner
DX: E78.5 Hyperlipidemia, unspecified (principal)